=== PATIENT | female | born 1960 | race Caucasian/White ===

== ENCOUNTER 2023-06-04 01:57 | Emergency (ER) | payer BC ==
[2023-06-04] MEDS ORDERED: HYDROmorphone 0.5 MG/0.5 ML Syringe IVPUSH ONE (02:17)
[2023-06-04] MEDS ORDERED: Propofol 200 MG/20 ML SDV ONE (02:39)
== END 2023-06-04 03:23 | disposition home or self-care (01) ==
LOC: JP.ED 01:57
DX: M24.452 Recurrent dislocation, left hip (principal); Z79.82 Long term (current) use of aspirin; Z79.899 Other long term (current) drug therapy; Z86.16 Personal history of COVID-19; Z96.642 Presence of left artificial hip joint; X50.9XXA Other and unspecified overexertion or strenuous movements or postures, initial encounter
CPT/HCPCS: 27265; 73501; 96374; 99284; J1170; J2704; 99282